=== PATIENT | male | born 1980 | race Two or more races ===

== ENCOUNTER 2016-04-28 13:09 | Emergency (ER) | payer MEDICAID ==
[~2016-04-28] VITALS: Ht 172.7 cm; Wt 90.7 kg
[2016-04-28 15:28] LABS: Basophils # (auto) 0 uL; Basophils % (auto) 0.7 % (0.0-2.0); Eosinophils # (auto) 0.2 uL; Eosinophils % (auto) 2.3 % (0.0-7.0); Hematocrit 42.1 % (41.0-53.0); Hemoglobin 13.4 g/dL (13.5-17.5); Lymphocytes # (auto) 1.4 uL; Lymphocytes % (auto) 20.2 % (10.0-50.0); Mean Corpuscular Hgb Conc. 31.9 g/dL (32.0-36.0); Mean Platelet Volume 8.1 fL (7.4-10.4); Monocytes # (auto) 0.4 uL; Neutrophils # (auto) 4.9 uL; Neutrophils % (auto) 70.8 % (37.0-80.0); Platelet Count (auto) 264 10^3/uL (140-450); Red Cell Distribution Width 16.7 % (11.6-16.0); White Blood Cell 6.9 10^3/uL (4.4-10.8)
[2016-04-28 15:43] LABS: Albumin 3.9 g/dL (3.4-5.0); BUN/Creatinine Ratio 9.9; Calcium 8.7 mg/dL (8.5-10.1)
[2016-04-28 15:46] LABS: Bilirubin, Total 0.6 mg/dL (0.2-1.0); Total Protein 7.8 g/dL (6.4-8.2)
[2016-04-28 16:15] VITALS: BP 115/74
[2016-04-28 16:25] LABS: Urine Bilirubin Negative (Negative); Urine Blood Negative /uL (Negative); Urine Color Yellow (Yellow); Urine Glucose Normal (Normal); Urine Ketone Negative (Negative); Urine Mucus FEW (None Seen); Urine Nitrite Negative (Negative); Urine RBC 3 /hpf (0 - 3); Urine Squamous Epithelial Cell FEW /hpf (<5); Urine Urobilinogen Normal (Negative); Urine pH 6.5 (5.0-8.0)
[2016-04-28] MEDS ORDERED: MECLIZINE HCL 25 MG TAB PO ONE (17:00)
== END 2016-04-28 17:00 | disposition home or self-care (01) ==
LOC: ER 13:21
DX: R42 Dizziness and giddiness (principal); E11.9 Type 2 diabetes mellitus without complications
CPT/HCPCS: 36415; 70450; 80053; 81001; 82962; 85025; 93005